=== PATIENT | female | born 1975 | race African-American/Black ===

== ENCOUNTER 2017-03-22 20:39 | Emergency (ER) | payer MEDICAID ==
[~2017-03-22] VITALS: Ht 170.2 cm; Wt 67.0 kg
[2017-03-23] MEDS ORDERED: IBUPROFEN 600MG TABLET PO ONE
[2017-03-23] MEDS ORDERED: BACITRACIN ZINC OINT UDPKT TOP ONE
[2017-03-23] MEDS ORDERED: LIDOCAINE HCL 1% 20ML VIAL (Pyxis) INJ MC ONE
[2017-03-23 01:15] VITALS: BP 134/73
== END 2017-03-23 01:40 | disposition home or self-care (01) ==
LOC: ER 20:39
DX: S61.213A Laceration without foreign body of left middle finger without damage to nail, initial encounter (principal); E78.00 Pure hypercholesterolemia, unspecified; Z98.890 Other specified postprocedural states; W25.XXXA Contact with sharp glass, initial encounter; Y93.89 Activity, other specified; Y92.018 Other place in single-family (private) house as the place of occurrence of the external cause
CPT/HCPCS: 12001; 99283; J3490; X7700; Z7610

== ENCOUNTER 2017-03-24 11:00 | Emergency (ER) | payer MEDICAID ==
[~2017-03-24] VITALS: Ht 170.2 cm; Wt 67.0 kg
[2017-03-24 13:50] VITALS: BP 132/82
== END 2017-03-24 15:09 | disposition home or self-care (01) ==
LOC: ER 14:07
DX: Z48.00 Encounter for change or removal of nonsurgical wound dressing (principal)
CPT/HCPCS: 99283

== ENCOUNTER 2017-03-26 08:36 | Emergency (ER) | payer MEDICAID ==
[~2017-03-26] VITALS: Ht 170.2 cm; Wt 67.0 kg
[2017-03-26 10:00] VITALS: BP 116/72
== END 2017-03-26 10:31 | disposition home or self-care (01) ==
LOC: ER 10:29
DX: S61.213D Laceration without foreign body of left middle finger without damage to nail, subsequent encounter (principal); X58.XXXD Exposure to other specified factors, subsequent encounter; Y92.89 Other specified places as the place of occurrence of the external cause; Y99.8 Other external cause status
CPT/HCPCS: 99283

== ENCOUNTER 2017-04-03 10:49 | Emergency (ER) | payer MEDICAID ==
[~2017-04-03] VITALS: Ht 170.2 cm; Wt 66.0 kg
[2017-04-03 11:03] VITALS: BP 132/77
== END 2017-04-03 15:54 | disposition home or self-care (01) ==
LOC: ER 13:00
DX: Z48.02 Encounter for removal of sutures (principal); Z87.440 Personal history of urinary (tract) infections
CPT/HCPCS: 99283; Z7610

== ENCOUNTER 2017-11-08 06:21 | Emergency (ER) | payer MEDICAID ==
[~2017-11-08] VITALS: Ht 162.6 cm; Wt 67.0 kg
[2017-11-08 09:58] LABS: CLARITY URINE CLEAR (CLEAR); COLOR URINE YELLOW (YELLOW); KETONES URINE NEGATIVE (NEGATIVE); LEUKOCYTE ESTERASE URINE NEGATIVE (NEGATIVE); NITRITE URINE NEGATIVE (NEGATIVE); OCCULT BLOOD URINE NEGATIVE (NEGATIVE); PH URINE 5.5 (4.5-8.0); PROTEIN URINE NEGATIVE (NEGATIVE); UROBILINOGEN URINE 0.2 E.U./dL (0.2-1.0)
[2017-11-08] MEDS ORDERED: ACETAMINOPHEN WITH CODEINE 300/30MG TABLET PO STA (10:21)
[2017-11-08 11:10] LABS: BASOPHILS % 1.1 % (0.0-2.0); EOSINOPHILS % 1.3 % (0.0-5.0); HEMATOCRIT. 40.9 % (36.0-48.0); HEMOGLOBIN. 13.6 g/dL (12.0-16.0); MEAN CORPUSCULAR HEMOGLOBIN 31.3 pg (28.0-32.0); MEAN CORPUSCULAR VOLUME 94.2 fL (81.0-99.0); MEAN PLATELET VOLUME 7.8 fl (7.4-10.4); MONOCYTES % 9.9 % (2.0-8.0); NEUTROPHILS % 48.7 % (40.0-76.0); PLATELET 254 x1000/uL (130-400); RED BLOOD CELL COUNT 4.34 mill/uL (4.2-5.4); RED CELL DISTRIBUTION WIDTH 13.1 % (11.6-14.6)
[2017-11-08 11:16] LABS: CHLORIDE 107 mEq/L (98-107)
[2017-11-08 11:17] LABS: PROTHROMBIN TIME 10.9 sec (9.4-11.6)
[2017-11-08 11:20] VITALS: BP 124/76
== END 2017-11-08 12:28 | disposition home or self-care (01) ==
LOC: ER 06:21
DX: R10.32 Left lower quadrant pain (principal); M54.89 Other dorsalgia; R03.0 Elevated blood-pressure reading, without diagnosis of hypertension
CPT/HCPCS: 36415; 74176; 80053; 81003; 81025; 85025; 85610; 99285

== ENCOUNTER 2020-05-12 07:45 | Emergency (ER) | payer MEDICAID ==
[~2020-05-12] VITALS: Ht 170.2 cm; Wt 63.5 kg
[2020-05-12 09:59] VITALS: BP 133/78
== END 2020-05-12 10:02 | disposition home or self-care (01) ==
LOC: ER 08:17
DX: R51.9 Headache, unspecified (principal); V49.59XA Passenger injured in collision with other motor vehicles in traffic accident, initial encounter; Y93.89 Activity, other specified; Y92.89 Other specified places as the place of occurrence of the external cause; Y99.8 Other external cause status
CPT/HCPCS: 81025; 99284

== ENCOUNTER 2020-11-10 14:41 | Emergency (ER) | payer MEDICAID ==
[~2020-11-10] VITALS: Ht 170.2 cm; Wt 63.0 kg
[2020-11-10] MEDS ORDERED: ACETAMINOPHEN 325MG TABLET PO STA (14:57)
[2020-11-10 15:37] LABS: BASOPHILS % 0.6 % (0.0-2.0); EOSINOPHILS % 2.6 % (0.0-5.0); HEMATOCRIT. 40.8 % (36.0-48.0); HEMOGLOBIN. 13.3 g/dL (12.0-16.0); LYMPHOCYTES % 47.6 % (20.0-50.0); MEAN CORPUSCULAR HEMOGLOBIN 30.7 pg (28.0-32.0); MEAN CORPUSCULAR VOLUME 94.3 fL (81.0-99.0); MEAN PLATELET VOLUME 8.7 fl (7.4-10.4); MONOCYTES % 11.1 % (2.0-8.0); NEUTROPHILS % 38.1 % (40.0-76.0); PLATELET 254 x1000/uL (130-400); RED BLOOD CELL COUNT 4.33 mill/uL (4.2-5.4); RED CELL DISTRIBUTION WIDTH 13.7 % (11.6-14.6)
[2020-11-10 15:41] LABS: CHLORIDE 107 mEq/L (98-107)
[2020-11-10 16:20] VITALS: BP 145/81
== END 2020-11-10 16:35 | disposition home or self-care (01) ==
LOC: ER 14:41
DX: R07.89 Other chest pain (principal); E78.00 Pure hypercholesterolemia, unspecified
CPT/HCPCS: 36415; 71046; 80053; 84484; 85025; 93005; 99285

== ENCOUNTER 2021-01-12 18:09 | Emergency (ER) | payer MEDICAID ==
[~2021-01-12] VITALS: Ht 170.2 cm; Wt 65.0 kg
[2021-01-12] MEDS ORDERED: TOPUD PO (18:42)
[2021-01-12 19:07] VITALS: BP 123/75
== END 2021-01-12 19:09 | disposition home or self-care (01) ==
LOC: ER 18:11
DX: R59.0 Localized enlarged lymph nodes (principal); R03.0 Elevated blood-pressure reading, without diagnosis of hypertension; E78.00 Pure hypercholesterolemia, unspecified
CPT/HCPCS: 99282

== ENCOUNTER 2021-02-21 09:36 | Emergency (ER) | payer MEDICAID ==
[~2021-02-21] VITALS: Ht 170.2 cm; Wt 63.0 kg
[~2021-02-21 09:36] MED LIST: TOPUD PO
[2021-02-21 09:45] VITALS: BP 128/85
[2021-02-21] MEDS ORDERED: CLOT15CR27 TP (10:26)
[2021-02-21] MEDS ORDERED: FLUCONAZOLE 100MG TABLET PO ONE (10:30)
[2021-02-21] MEDS ORDERED: FLUCONAZOLE 150MG TABLET PO NR (11:00)
== END 2021-02-21 10:35 | disposition left against medical advice (07) ==
LOC: ER 09:40
DX: N76.0 Acute vaginitis (principal)
CPT/HCPCS: 87210; 99284